=== PATIENT | male | born 1950 ===

== ENCOUNTER 2016-12-06 18:46 | Emergency (ER) | payer MEDICARE ==
[2016-12-06 18:57] VITALS: BP 163/88; RESP 18; TEMP 99; O2SAT 99
--- NOTE | 2016-12-06 19:57 | ED PDOC ---
HPI: Chest Pain Time Seen by Provider: 12/06/16 19:00 Chief Complaint (Nursing): Chest Pain Chief Complaint (Provider): Chest Pain History Per: Patient History/Exam Limitations: no limitations Onset/Duration Of Symptoms: Hrs (4 hours prior to arrival) Current Symptoms Are (Timing): Better (asymptomatic) Context: Other (exertional activity inclusive of ETOH abuse) Severity: Moderate Pain Scale Rating Of: 5 Associated Symptoms: Syncope (pre-syncopal lightheadedness), Other (back pain; denies a loss of consciousness). denies: Dyspnea Additional Complaint(s): Chapo Petty is a 66 year old male, with a past medical history of diabetes mellitus and hypertension, who presents to the emergency department via EMS for the evaluation of substernal chest pain, radiating throughout his back, that the patient experienced 4 hours prior to arrival, which resolved after 1 hour. Patient states that he was walking very fast while outside prior to his symptoms. Associated pre-syncopal lightheadedness is currently present. Denies shortness of breath or a loss of consciousness. Patient is currently asymptomatic and feeling better. Of note, patient admits to drinking today. PMD: none specified Past Medical History Reviewed: Historical Data, Nursing Documentation, Vital Signs Vital Signs: Last Vital Signs Temp 99.0 F 12/06/16 18:50 Pulse 71 12/06/16 20:13 Resp 18 12/06/16 18:50 BP 163/88 H 12/06/16 18:50 Pulse Ox 99 12/06/16 20:13 - Medical History PMH: Diabetes, HTN - Surgical History Surgical History: No Surg Hx - Family History Family History: States: Hypertension - Social History Current smoker - smoking cessation education provided: No Ex-Smoker (has not smoked in the last 12 months): No Alcohol: Social - Allergies Allergies/Adverse Reactions: Allergies Allergy/AdvReac Type Severity Reaction Status Date / Time No Known Allergies Allergy Verified 12/06/16 18:57 Review of Systems ROS Statement: Except As Marked, All Systems Reviewed And Found Negative Cardiovascular: Positive for: Chest Pain (substernal) Respiratory: Negative for: Shortness of Breath Musculoskeletal: Positive for: Back Pain Neurological: Positive for: Other (lightheadedness; denies a loss of consciousness) Physical Exam - Reviewed Nursing Documentation Reviewed: Yes Vital Signs Reviewed: Yes - Physical Exam Appears: Positive for: Well, Non-toxic, No Acute Distress Head Exam: Positive for: ATRAUMATIC, NORMAL INSPECTION, NORMOCEPHALIC Skin: Positive for: Normal Color, Warm, Dry Eye Exam: Positive for: EOMI, Normal appearance, PERRL ENT: Positive for: Normal ENT Inspection. Negative for: Pharyngeal Erythema, Tonsillar Exudate Neck: Positive for: Normal, Painless ROM, Supple Cardiovascular/Chest: Positive for: Regular Rate, Rhythm. Negative for: Murmur Respiratory: Positive for: Normal Breath Sounds. Negative for: Wheezing, Respiratory Distress Gastrointestinal/Abdominal: Positive for: Normal Exam, Soft. Negative for: Tenderness Back: Positive for: Normal Inspection. Negative for: L CVA Tenderness, R CVA Tenderness Extremity: Positive for: Normal ROM. Negative for: Tenderness, Deformity Neurologic/Psych: Positive for: Alert, Oriented. Negative for: Motor/Sensory Deficits - Laboratory Results Result Diagrams: 12/06/16 19:45 12/06/16 19:45 - ECG ECG Rhythm: Positive for: Normal QRS, Normal ST Segment, Sinus Rhythm Rate: 71 O2 Sat by Pulse Oximetry: 99 (RA) Pulse Ox Interpretation: Normal Medical Decision Making Medical Decision Makin:00 Initial Impression: Chest pain Differential Diagnoses include, but are not limited to, gastroesophageal reflux disease, angina, myocardial infarction, and gastritis. Initial Plan: * Chest X-Ray * EKG * Type and Screen * Alcohol Serum * CBC * CMP * PT/PTT * Lipase * Troponin I * Creatine Phosphokinase * Magnesium * Phosphorous * Urine Dip * Glucose, Blood, POC * Reevaluation 19:40 EKG read at a rate of 71 with a Normal QRS, Normal ST Segment, and a Normal Sinus Rhythm. 2100 On reevaluation pt continues to be asymptomatic. Labs demonstrate leukocytosis and mild dehydration and elevated BAL. Troponin negative, and it had been >4 hours since episode of cp occurred. LIZ pt findings and plan of care. Pt will be dc'd. Scribe Attestation: Documented by Delmer Colon, acting as a scribe for Marya Paul MD. Provider Scribe Attestation: All medical record entries made by the Scribe were at my direction and personally dictated by me. I have reviewed the chart and agree that the record accurately reflects my personal performance of the history, physical exam, medical decision making, and the department course for this patient. I have also personally directed, reviewed, and agree with the discharge instructions and disposition. Disposition - Clinical Impression Clinical Impression: Atypical chest pain - Disposition Disposition: Routine/Home Disposition Time: 21:00 Condition: IMPROVED Additional Instructions: VISITA OSBORNE DOCTOR EN 2-3 TITUS A CHEQAR DE NUEVO Instructions: Chest Pain (ED), Alcohol Intoxication (ED), Dehydration (ED) Print Language: THAI
[2016-12-06 19:58] LABS: BASO # 0.1 K/uL (0.0-0.2); BASO % 0.6 % (0.0-2.0); EOS # 0.1 K/uL (0.0-0.7); EOS % 0.4 % (0.0-4.0); HEMATOCRIT 40.7 % (35.0-51.0); LYMPH # 2.1 K/uL (1.0-4.3); LYMPH % 11.4 % (20.0-40.0); MEAN CORPUSCULAR HEMOGLOBIN 26.8 pg (27.0-31.0); MEAN CORPUSCULAR HGB CONC 32.3 g/dL (33.0-37.0); MEAN PLATELET VOLUME 8.7 fl (7.2-11.7); MONO # 0.9 K/uL (0.0-0.8); MONO % 4.7 % (0.0-10.0); NEUT # 15.2 K/uL (1.8-7.0); NEUT % 82.9 % (50.0-75.0); RED CELL DISTRIBUTION WIDTH 16.6 % (11.5-14.5); WHITE BLOOD COUNT 18.3 K/uL (4.8-10.8)
[2016-12-06 20:08] LABS: PARTIAL THROMBOPLASTIN TIME 24.3 SECONDS (23.3-32.5)
[2016-12-06 20:13] VITALS: PULSE 71
[2016-12-06 20:34] LABS: ALB/GLOB RATIO 1.5 (1.0-2.1); ALCOHOL SERUM 79 mg/dl (0-10); ALKALINE PHOSPHATASE 56 U/L (38-126); ALT/SGPT 30 U/L (21-72); AST/SGOT 18 U/L (17-59); BILIRUBIN,TOTAL 0.5 mg/dl (0.2-1.3); BLOOD UREA NITROGEN 26 mg/dl (9-20); CALCIUM 9.6 mg/dL (8.4-10.2); CARBON DIOXIDE 21 mmol/L (22-30); CHLORIDE 101 mmol/L (98-107); GFR AFRICAN-AMERICAN > 60; GLUCOSE,RANDOM 113 mg/dL (75-110); LIPASE 102 U/L (23-300); PHOSPHOROUS 4.4 mg/dl (2.5-4.5); POTASSIUM 4.5 MMOL/L (3.6-5.0); SODIUM 140 mmol/l (132-148); TOTAL PROTEIN 7.5 G/DL (6.3-8.2)
--- NOTE | 2016-12-06 22:29 | RAD ---
HISTORY: cp COMPARISON: None available. TECHNIQUE: Chest PA and lateral FINDINGS: LUNGS: No focal consolidation. Please note that chest x-ray has limited sensitivity for the detection of pulmonary masses. PLEURA: No significant pleural effusion identified. No definite pneumothorax . CARDIOVASCULAR: Heart size appears within normal limits. Atherosclerotic calcifications of the aorta. OSSEOUS STRUCTURES: Degenerative changes. VISUALIZED UPPER ABDOMEN: Unremarkable. OTHER FINDINGS: None. IMPRESSION: No focal consolidation, significant pleural effusion, or definite pneumothorax identified.
--- NOTE | 2016-12-07 13:26 | CARD ---
APPROVED REPORT EKG Measurement Heart [id number] <Conclusion> Normal sinus rhythm Normal ECG
== END 2016-12-06 21:27 | disposition home or self-care (01) ==
LOC: H.ER 18:46
DX: R07.9 Chest pain, unspecified (principal); F10.10 Alcohol abuse, uncomplicated; E11.9 Type 2 diabetes mellitus without complications; E86.0 Dehydration; I10 Essential (primary) hypertension; Z87.891 Personal history of nicotine dependence
CPT/HCPCS: 71020; 80053; 82550; 83690; 83735; 84100; 84484; 85025; 85610; 85730; 86850; 86900; 93005; 99282; G0480